=== PATIENT | male | born 1975 | race Two or more races ===

== ENCOUNTER → 2018-08-05 | Outpatient (CLI) | payer SELFPAY ==
--- NOTE | 2018-08-05 15:40 | KCIC ---
PA and lateral chest x-ray without comparison for chest pain left side, nonsmoker. FINDINGS: The lungs are clear. The cardiomediastinum is grossly unremarkable. No significant soft tissue or osseous abnormality is identified. IMPRESSION: 1. No acute cardiopulmonary abnormality. Electronically signed by: Osorio Pinzon MD (08/05/2018 3:36 PM) [id number]
== END | disposition home or self-care (01) ==
LOC: KCIC 11:21
DX: R07.9 Chest pain, unspecified (principal)
CPT/HCPCS: 71046